=== PATIENT | male | born 1970 | race Caucasian/White ===

== ENCOUNTER → 2023-04-22 | Outpatient (CLI) | payer SELFPAY ==
--- NOTE | 2023-04-22 15:46 | CT_ITS ---
STUDY: CT MAXILLOFACIAL SINUSES REASON FOR EXAM: Male, 52 years old. SINUSITIS RADIATION DOSAGE (If Supplied By Facility): CTDIvol = ( 33.06 ) mGy, DLP = ( 895.83 ) mGycm TECHNIQUE: The patient was scanned in a multi detector CT scanner. High resolution axial imaging was performed without the administration of intravenous contrast material. Sagittal and coronal images were reconstructed. Individualized dose optimization techniques were used for this CT. COMPARISON: None. FINDINGS: FRONTAL SINUSES: Diffuse opacification of the frontal sinuses bilaterally. ETHMOIDAL SINUSES: Severe diffuse opacification of the right ethmoid air cells and left anterior ethmoid air cells with thickening of the ethmoid air cells septae. Mild mucosal thickening of left mid and posterior ethmoid air cells. MAXILLARY SINUSES: Severe diffuse opacification of the maxillary sinuses bilaterally.. SPHENOIDAL SINUSES: Severe opacification right sphenoid sinus and normal aeration on the left. There is occlusion of the bilateral maxillary infundibuli with normal uncinate processes, ethmoid bullae, and hiatus semilunaris. Large bilateral middle turbinates. Large bilateral inferior turbinates. Mild deviation nasal septum towards the right.. There is severe narrowing of the nasal cavity bilaterally more severe on the right. Incidental finding of changes consistent with chronic left mastoiditis.. The visualized bilateral orbital contents are normal. CT/Sinus/Facial Bone IMPRESSION: Severe diffuse pansinusitis with other findings consistent with sinonasal polyposis syndrome.. Clinical correlation recommended Electronically Signed: Tyrel Parmar MD at 22:51 EDT ,
== END | disposition home or self-care (01) ==
PROVIDERS: PCP Family Medicine; Referring Provider Otolaryngology Otolaryngology/Facial Plastic Surgery; Visit Provider Otolaryngology Otolaryngology/Facial Plastic Surgery
DX: J32.9 Chronic sinusitis, unspecified (principal)
CPT/HCPCS: 70486

== ENCOUNTER 2023-08-15 05:42 | Day surgery (SDC) | payer SELFPAY ==
[2023-08-15] VITALS (17 sets, daily range): BP systolic 127–169; BP diastolic 89–120; PULSE 78–102; RESP 16–18; TEMP 36.1–36.7; O2SAT 92–97; BMI 40.2
--- NOTE | 2023-08-15 06:15 | EKG12_ITS ---
Test Reason : PRE-OP Blood Pressure : / mmHG Vent. Rate : 093 BPM Atrial Rate : 093 BPM P-R Int : 140 ms QRS Dur : 084 ms QT Int : 350 ms P-R-T Axes : 006 041 008 degrees QTc Int : 435 ms Normal sinus rhythm Normal ECG No previous ECGs available Confirmed by THAIS HODGE, CORINNE ([id number]), field map editor JANNA CROWLEY ([id number]) on 08/31/2023 12:59:54 PM Referred By: Matt Burnette Confirmed By:CORINNE PLASCENCIA MD
[2023-08-15] MEDS: Oxymetazoline 0.05% 1 SPRAY SPRAY.BTL 3 SPRAY NASAL (06:17)
[2023-08-15] MEDS: Lactated Ringers 1,000 ML 15 ML IV (06:17)
[2023-08-15 06:28] LABS: Hematocrit 47.9 % (40-54); Hemoglobin 15.4 g/dL (13.0-16.5); Mean Corp Hgb Conc 32.2 g/dL (32-36); Mean Corpuscular Hgb 30.4 pg (27.0-32.0); Mean Corpuscular Volume 94.7 fL (80-94); Mean Platelet Vol. 10.5 fl (6.2-12.0); Platelet Count 269 K/mm3 (150-450); RBC Distribution Width CV 12.7 % (11.6-14.6); RBC Distribution Width SD 43.7 fl (35.1-43.9); Red Blood Count 5.06 M/mm3 (4.6-6.2); White Blood Count 8.2 K/mm3 (4.4-11.0)
[2023-08-15 06:43] LABS: Anion Gap 7 (5-15); BUN 21 mg/dL (7-18); BUN/Creat Ratio 24.4 RATIO (10-20); Calcium,Total 8.5 mg/dL (8.5-10.1); Chloride 108 mmol/L (98-107); Creatinine, Serum 0.86 mg/dL (0.70-1.30); EST Glomerular Filtration Rate 98 mL/min (>60); Est Glom Filt Rate - Afr Amer 119 mL/min (>60); Glucose 126 mg/dL (74-106); Potassium 4.4 mmol/L (3.5-5.1); Sodium Level 138 mmol/L (136-145)
--- NOTE | 2023-08-15 07:30 | ETH_PTH ---
PATIENT: ZULY VELEZ LOC: [facility] [place] U#:[id number] AGE/SX: 52/M ROOM: RE08/15/[address]: Dr. Matt Burnette MD : 1970 BED: DIS: 08/15/2023 SPEC #: [id number] RECD: 08/15/23 10:12 STATUS: MARIA LUZ WILMA #: [id number] STEPHAN: 08/15/23 07:[address]: Matt Burnette DEPT: SURGICAL PATHOLOGY RECD BY: Johana Powell ENTERED: 08/15/23 11:07 SP TYPE: ETH TISS OTHR DR: Dr. Maximilian Elizondo MD Tissues: Ethmoid sinus, NOS Procedures: Surgery Specimen Level IV HEADER OPERATION: Functional endoscopic sinus surgery PRE-OP DIAGNOSIS: Nasal polyps, nasal congestion, chronic TISSUE SUBMITTED: A. Right naso sinus contents, B. Left naso sinus contents MICROSCOPIC DIAGNOSIS A. Right naso sinus contents: Fragments of respiratory mucosa with acute and chronic inflammation and squamous metaplasia. See comment. B. Left naso sinus contents: Fragments of respiratory mucosa with chronic inflammation. SJ: 08/16/2023 COMMENT A. Many of the fragments have polypoid appearance, may represent fragments of polyp. MICROSCOPIC DESCRIPTION Slides are reviewed. GROSS DESCRIPTION A. Received is one container labeled with the patient name and designated right naso sinus contents. The specimen consists of multiple irregular fragments of hemorrhagic mucoid tissue that in aggregate measure 5 x 3 x 06 cm. A piece of santiago soft tissue is also noted measuring 2 x 1 x 0.5 cm. This piece is bisected. Special Education Teacher tissue is submitted in two cassettes, cassette 2 contains the santiago soft tissue, entirely submitted. B. Received is one container labeled with the patient name and designated left naso sinus contents. The specimen consists of multiple irregular fragments of hemorrhagic mucoid tissue that in aggregate measure 5 x 5 x 2 cm. Special Education Teacher tissue is submitted in two cassettes. / BLAS:dimitri 08/15/23 TC: 3 [facility]: [id number] x2
--- NOTE | 2023-08-15 07:34 | PCM.DC.SUM ---
Providers Primary Care Physician: Dr. Maximilian Elizondo MD Reason For Visit: 08/15/23 11:00 Functional Endoscopoic Sinus Surger Medications at Discharge Home Medications NK 08/15/23 Weight / BMI Weight Weight: 120 kg Body Mass Index (BMI) 40.2 ABG / Lab / Microbiology Data 08/15/23 06:15 08/15/23 06:15 Laboratory: Laboratory Results - last 24 hr 08/15/23 06:15: WBC 8.2, RBC 5.06, Hgb 15.4, Hct 47.9, MCV 94.7 H, MCH 30.4, MCHC 32.2, RDW Std Deviation 43.7, RDW Coeff of Kerry 12.7, Plt Count 269, MPV 10.5, Sodium 138, Potassium 4.4, Chloride 108 H, Carbon Dioxide 23.0, Anion Gap 7, BUN 21 H, Creatinine 0.86, Estim Creat Clear Calc 95.00, Est GFR (MDRD) Af Amer 119, Est GFR (MDRD) Non-Af 98, BUN/Creatinine Ratio 24.4 H, Glucose 126 H, Calcium 8.5 D/C Instructions Discharge Diet: No restrictions Additional Activity Instructions: NO NOSE BLOWING Additional Dressing/Incision Instructions: IRRIGATE WITH SALINE 4X/DAY. START 08/16/23 Please Follow Up With: Matt Burnette MD When: next week Meaningful Use Info Meaningful Use Diagnoses (Choose all that apply): None applicable Discharge Plan Admission Attending Provider: Matt Burntete Primary Care Provider: Maximilian Elizondo Discharge Orders/Prescriptions Prescriptions: No Action NK Referrals / Follow Up: Maximilian Elizondo MD [Primary Care Provider] -
[2023-08-15] MEDS: Oxymetazoline 0.05% 1 SPRAY SPRAY.BTL 15 SPRAY (07:55)
[2023-08-15] MEDS: Lidocaine 1% /Epi 1:100 (50ml) 50 ML VIAL (07:55)
--- NOTE | 2023-08-15 08:59 | PCM.OPRPT ---
Report of Operation Date of Procedure: 08/15/23 Pre-Operative Diagnosis: chronic sinusitis with polyposis Post-Operative Diagnosis: same Surgery/Procedure Performed:: Bilateral total ethmoidectomy Left sphenoidotomy bilateral maxillary antrostomy with tissue removal use of navigation Surgeon: Matt Burnette Type of Anesthesia: General Anesthesiologist: Ciro Loza Estimated Blood Loss (mL): 50 cc Description of Procedure: The patient was taken to the operating room on 08/15/2023. The patient was placed in the supine position on the operating table. The patient was given sufficient general endotracheal anesthesia. The head of bed was elevated 30 degrees. The navigation system was placed and verified per protocol and found to be accurate. 0 and 30 degrees rigid nasal endoscopes were used throughout the entire case. The middle turbinate uncinate process and polyps were injected with 1% lidocaine with epinephrine bilaterally. The right middle turbinate was medialized with a [place] elevator. Polyp was removed from the nasal cavity and middle meatus using a sinus shaver. A ball-tipped sinus seeker was placed into the patient's maxillary sinus. The antrostomy was created with a backbiter. The uncinate process was taken down using a microdebrider. Tissue was removed from the maxillary sinus using a microdebrider with a 30 degree rigid nasal endoscope for visualization. Next, the ethmoid bulla was opened with a small curette. Anterior and posterior ethmoidectomy were then carried out using curette, sinus shaver and 45 degree Blakesley Gold forceps. Ethmoid cells were verified for relation to the skull base and orbit prior to being entered with the navigation system. The front face of the sphenoid was opened with a suction. Joshua-Cut forceps were then used to widen the opening. I then placed Afrin pledgets into the sinonasal cavity. Next attention was turned to the left side. A large polyp was removed from the nasal cavity and middle meatus using a sinus shaver. The uncinate process was taken down using a sinus shaver. In doing so, the maxillary antrostomy was created with a microdebrider. Tissue was removed from the maxillary sinus using a microdebrider with a 30 degree rigid nasal endoscope for visualization. The ethmoid bulla was opened with a small curette. Anterior posterior ethmoidectomy were then carried out using a sinus shaver curette and Blakesley Gold forceps. Ethmoid cells were verified for relation to the skull base and orbit prior to being entered with the navigation system. There was a polyp occluding the natural sphenoid ostia. This was removed with a sinus shaver. The sphenoid was then opened on the left side using a sinus shaver and confirmed with navigation. Hemostasis was then achieved using Afrin pledgets. The pledgets were then removed bilaterally and Giovanni powder was applied bilaterally for absolute hemostasis. The procedure was then terminated. The patient was then awoken and brought to the recovery room in stable condition. blood loss approximately 50 cc, replacement none. Sponge, needle, instrument count were correct at the end of the procedure.
[2023-08-15] MEDS: Metoprolol Tartrate 5 MG/5 ML Vial 10 MG IV (09:52)
== END 2023-08-15 11:46 | disposition home or self-care (01) ==
LOC: SDC 05:48 → AC 05:53
PROVIDERS: PCP Family Medicine; Referring Provider Otolaryngology; Visit Provider Otolaryngology
PROC: (CPT 31255; principal; 2023-08-15 07:00)
DX: J33.0 Polyp of nasal cavity (principal); J32.9 Chronic sinusitis, unspecified; R09.81 Nasal congestion
CPT/HCPCS: 31255; 31267; 80048; 85027; 88305; 93005; J7120; J2405

== ENCOUNTER 2025-02-06 10:23 | Day surgery (SDC) | payer SELFPAY ==
--- NOTE | 2025-02-04 13:06 | PAT.ANE_ITS ---
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 When Was Last Pacemaker Check QUESTION #4 FULL TEXT: You/Your Family Experience fever (hyperthermia) with Anesthesia Last Oral Intake Last Oral intake: Last Oral Intake NPO since Meds taken in AM with sips of water? Meds patient instructed to take am of surgery PONV PONV - gasoline catalyst operator: PONV - gasoline catalyst operator Female No 02/01/25 15:17 HX of Motion Sickness No 02/01/25 15:17 HX of N/V After Surgery No 02/01/25 15:17 Non-Smoker Yes 02/01/25 15:17 Duration of Surgery greater No 02/01/25 15:17 than 60 minutes Number of Risk Factors 1 02/01/25 15:17 PONV Score Low Risk 02/01/25 15:17 Height & Weight Height & Weight: Anesthesia: Height & Weight Height 5 ft 8 in 08/15/23 06:14 Respiratory Assessment Respiratory Assessment - gasoline catalyst operator: Respiratory Tract Infection Hx - gasoline catalyst operator Hx Respiratory Tract Infection No 02/01/25 15:17 STOP Sleep Apnea STOP Sleep Apnea - gasoline catalyst operator: STOP Sleep Apnea - gasoline catalyst operator Hx Hypertension Yes: CONTROLLED WITH MED 02/01/25 15:17 Hx Sleep Apnea No 02/01/25 15:17 CPAP BIPAP Do you snore loudly (louder No 02/01/25 15:17 than talking or can be heard Do you often feel tired/ No 02/01/25 15:17 fatigued/ sleepy during daytime? Has anyone observed you stop No 02/01/25 15:17 breathing during sleep? STOP Results Negative 02/01/25 15:17 QUESTION #5 FULL TEXT : Do you snore loudly (louder than talking or can be heard through closed doors)? 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 Specify any problems Hx of Preganancy in last 3 N/A 02/01/25 15:17 Months Nurse Filling Out Transfusion NBUCHER 02/01/25 15:17 & Questions: Date: 02/01/25 02/01/25 15:17 Time: 15:18 02/01/25 15:17 Patient unable to answer at this time (ie. confused, unrespo /Reproduction History /Reproductive History - gasoline catalyst operator: /Reproductive Hx- gasoline catalyst operator Hx Now No 02/01/25 15:17 Gestational Age (in weeks): EDC: Hx Hx Para Hx Section SAB No 02/01/25 15:17 [facility] Medical History (Updated 02/01/25 @ 15:24 by Darleen Mercado) Wears glasses History of edema History of echocardiogram Hypertension Difficulty swallowing Gastric reflux Non-smoker Chronic cough Home Medications ?Medication ?Instructions ?Recorded ?Last Taken ?Type lisinopril 10 mg tablet 10 mg PO DAILY 02/01/25 Unkn own History Allergy/AdvReac Type Severity Reaction Status Date / Time No Known Allergies Allergy Verified 02/01/25 15:16 Surgical History (Updated 02/01/25 @ 15:24 by Darleen Mercado) History of nasal surgery History of colonoscopy History of ankle surgery (~1991) Social History Smoking Status: Never smoker Audit: Pertinent Findings Pertinent Findings EKG Perinent findings: 08/15/2023. Normal sinus rhythm 93 bpm. Recommendation Anesthesia Recommendation Anesthesia recommendation: OPTIMIZED for anesthesia
[2025-02-06] VITALS (8 sets, daily range): BP systolic 119–143; BP diastolic 81–111; PULSE 93–105; RESP 18; TEMP 36.3–37.6; O2SAT 92–98; BMI 39.0
--- NOTE | 2025-02-06 10:36 | PRE.ANES_ITS ---
ASA Classification* ASA Classification ASA Classification: 2 Assessment & Plan Anesthesia* Anesthesia Assessment Anesthesia Assessment: Discussed sedation and/or anesthesia options, risks, benefits, and alternatives with patient/parents/legal guardian/POA. Questions invited. The patient/parents/legal guardian/POA seems to understand and agrees to proceed with anesthesia plan. Reviewed the physical assessment, medical history, allergy history and patient home medications list prior to surgery/procedure/anesthetic and documented any changes. Performed airway and anesthesia risk assessments. Anesthesia Type Anesthesia Type: General Anesthesia Focused Assessment* Airway Assessment Mouth opens: >3 cm Mallampati Score: II Focused Labs Anesthesia Preop lab: CBC WBC 8.2 K/mm3 (4.4-11.0) 08/15/23 06:15 08/15/23 RBC 5.06 M/mm3 (4.6-6.2) 08/15/23 06:15 08/15/23 Hgb 15.4 g/dL (13.0-16.5) 08/15/23 06:15 08/15/23 Hct 47.9 % (40-54) 08/15/23 06:15 08/15/23 Plt Count 269 K/mm3 (150-450) 08/15/23 06:15 08/15/23 CHEMISTRY Potassium 4.4 mmol/L (3.5-5.1) 08/15/23 06:15 08/15/23 Sodium 138 mmol/L (136-145) 08/15/23 06:15 08/15/23 BUN 21 mg/dL (7-18) H 08/15/23 06:15 08/15/23 Creatinine 0.86 mg/dL (0.70-1.30) 08/15/23 06:15 08/15/23 Glucose 126 mg/dL (74-106) H 08/15/23 06:15 08/15/23 COAG Pre-Assessment Diagnosis/Proposed Procedure Planned Operative Procedure(s): Circumcision Anesthesia History Anesthesia History - patient access coordinator: Anesthesia History - patient access coordinator Hx Hospitalization No 02/01/25 15:17 Any Problems With Anesthesia No 02/01/25 15:17 Cholinesterase deficiency No 02/01/25 15:17 You/Your Family Experience No 02/01/25 15:17 fever (hyperthermia) with Relationship Recent Exposure to Contagious No 08/15/23 06:14 Disease Does patient have nerve No 02/01/25 15:17 stimulator Patient instructed to have device shut off --Does patient have Pacemaker or ICD? When Was Last Pacemaker Check QUESTION #4 FULL TEXT: You/Your Family Experience fever (hyperthermia) with Anesthesia Last Oral Intake Last Oral intake: Last Oral Intake NPO since Meds taken in AM with sips of water? Meds patient instructed to take am of surgery PONV PONV - patient access coordinator: PONV - patient access coordinator Female No 02/01/25 15:17 HX of Motion Sickness No 02/01/25 15:17 HX of N/V After Surgery No 02/01/25 15:17 Non-Smoker Yes 02/01/25 15:17 Duration of Surgery greater No 02/01/25 15:17 than 60 minutes Number of Risk Factors 1 02/01/25 15:17 PONV Score Low Risk 02/01/25 15:17 Height & Weight Height & Weight: Anesthesia: Height & Weight Height 5 ft 8 in 02/05/25 08:07 Weight: 121.563 kg 02/05/25 08:07 Respiratory Assessment Respiratory Assessment - patient access coordinator: Respiratory Tract Infection Hx - patient access coordinator Hx Respiratory Tract Infection No 02/01/25 15:17 STOP Sleep Apnea STOP Sleep Apnea - patient access coordinator: STOP Sleep Apnea - patient access coordinator Hx Hypertension Yes: CONTROLLED WITH MED 02/01/25 15:17 Hx Sleep Apnea No 02/01/25 15:17 CPAP BIPAP Do you snore loudly (louder No 02/01/25 15:17 than talking or can be heard Do you often feel tired/ No 02/01/25 15:17 fatigued/ sleepy during daytime? Has anyone observed you stop No 02/01/25 15:17 breathing during sleep? STOP Results Negative 02/01/25 15:17 QUESTION #5 FULL TEXT : Do you snore loudly (louder than talking or can be heard through closed doors)? 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 Specify any problems Hx of Preganancy in last 3 N/A 02/01/25 15:17 Months Nurse Filling Out Transfusion NBUCHER 02/01/25 15:17 & Questions: Date: 02/01/25 02/01/25 15:17 Time: 15:18 02/01/25 15:17 Patient unable to answer at this time (ie. confused, unrespo /Reproduction History /Reproductive History - patient access coordinator: /Reproductive Hx- patient access coordinator Hx Now No 02/01/25 15:17 Gestational Age (in weeks): EDC: Hx Hx Para Hx Section SAB No 02/01/25 15:17 PFSH Medical History Wears glasses History of edema History of echocardiogram Hypertension Difficulty swallowing Gastric reflux Non-smoker Chronic cough Home Medications ?Medication ?Instructions ?Recorded ?Last Taken ?Type lisinopril 10 mg tablet 10 mg PO DAILY 02/01/25 Unkn own History Allergy/AdvReac Type Severity Reaction Status Date / Time No Known Allergies Allergy Verified 02/01/25 15:16 Surgical History History of nasal surgery History of colonoscopy History of ankle surgery (~1991) Social History Smoking Status: Never smoker Review of Systems (Anesthesia) ROS Narrative System reviewed and no additional complaints, except as documented.
[2025-02-06] MEDS: Lactated Ringers 1,000 ML 15 ML IV (11:03)
--- NOTE | 2025-02-06 12:11 | HP.PCM_ITS ---
HPI - General General Date of Service: 02/06/25 Chief Complaint: Phimosis HPI Narrative ZULY VELEZ, is a 54 M who presents for a circumcision [facility] Medical History Wears glasses History of edema History of echocardiogram Hypertension Difficulty swallowing Gastric reflux Non-smoker Chronic cough Home Medications ?Medication ?Instructions ?Recorded ?Last Taken ?Type lisinopril 10 mg tablet 10 mg PO DAILY 02/01/25 Unkn own History Allergy/AdvReac Type Severity Reaction Status Date / Time No Known Allergies Allergy Verified 02/06/25 10:55 Surgical History History of nasal surgery History of colonoscopy History of ankle surgery (~1991) Social History Smoking Status: Never smoker Vital Signs Vital Signs Vital Signs: 02/06/25 10:58 02/06/25 10:58 Temperature 97.5 F L Temperature Source Temporal Pulse Rate 105 H Respiratory Rate 18 Respiratory Pattern Normal Blood Pressure 143/111 H Blood Pressure Mean 121 Blood Pressure Source Monitor Blood Pressure Position Semi-Fowlers Blood Pressure Location Left Arm Pulse Ox 96 Oxygen Delivery Method Room Air Weight Weight: 116.6 kg Body Mass Index (BMI) 39.0
--- NOTE | 2025-02-06 12:12 | DCINST_ITS ---
Discharge Instructions Diet Discharge Diet: No restrictions DC O2, CPAP, BIPAP needs Home O2 Discharge instructions: No Dressing / Incision Discharge Activity: Return to Normal Activity and May Not Drive (while taking narcotic pain medications.) Dressing / Incision Call your doctor if you observe: Fever of 101 or Higher Follow Up Care Please Follow Up With: Romeo King MD When: Call [phone] for an appointment Test Results: Test results from this visit will be discussed in further detail at your follow- up appointment, if applicable. Discharge Plan Admission Primary Reason for Your Visit: circumcision Attending Provider: Romeo King Primary Care Provider: Maximilian Elizondo Instructions Print Language: Hungarian Discharge Orders/Prescriptions Prescriptions: No Action lisinopril 10 mg tablet 10 mg PO DAILY Referrals / Follow Up: Romeo King MD [Med Staff - Active Staff] - Maximilian Elizondo MD [Primary Care Provider] - Disposition Disposition (needs filled in before D/C Order can be placed): Home, Self Care
[2025-02-06] MEDS: Cefazolin 3 GM in 0.9% Normal Saline (100mL Bag) 100 ML IV (12:16)
--- NOTE | 2025-02-06 12:25 | FOR_PTH ---
PATIENT: ZULY VELEZ [place] [facility] [place][id number] AGE/SX: 54/M ROOM: RE02/06/[address]: Dr. Romeo King MD : 1970 BED: DIS: 02/06/2025 SPEC #: [id number] RECD: 02/06/25 13:31 STATUS: MARIA LUZ WILMA #: [id number] STEPHAN: 02/06/25 12:[address]: Romeo King DEPT: SURGICAL PATHOLOGY RECD BY: Talon Acosta ENTERED: 02/06/25 14:42 SP TYPE: FORESKIN OTHR DR: Dr. Maximilian Elizondo MD Tissues: A - Skin of foreskin, NOS Procedures: Surgery Specimen Level III HEADER OPERATION: Circumcision PRE-OP DIAGNOSIS: Stenosis TISSUE SUBMITTED: A- Foreskin MICROSCOPIC DIAGNOSIS A. Foreskin, circumcision: * Benign hyperkeratotic squamous epithelium with mild superficial chronic inflammation MICROSCOPIC DESCRIPTION Slides are reviewed. GROSS DESCRIPTION A. Received in formalin in a container labeled with the patient's name, date of , and foreskin is an unoriented and irregular portion of rubbery skin measuring 6.6 x 3.3 x 0.5 cm. The epidermis is santiago-pink and wrinkled with a white-pink, roughened, and somewhat thickened area measuring 5.3 x 1.4 cm, abutting the periphery. The deep margin is inked green, and sectioning reveals santiago-pink, rubbery surfaces with white-pink skin. Magnetic Tape Winder sections submitted in A1. [facility] 02-06-2025 CPT:73872
[2025-02-06] MEDS: Bupivacaine Mpf 0.5% 30 ML VIAL (12:31)
--- NOTE | 2025-02-06 12:48 | OP.PCM_ITS ---
Operative Report (Standard) Operative Information Date of Procedure: 02/06/25 Pre-Operative Diagnosis: Phimosis Post-Operative Diagnosis: The same Surgery/Procedure Performed: Circumcision ophthalmic medical technologist: No Type of Anesthesia: General RN Documented Start/Stop Times: Operation Date: 02/06/25 12:25 Case Time Into Pre-Op 02/06/25 10:49 Procedure Start Time: 12:29 Procedure Stop Time: 12:49 Select all DRAINS/GRAFTS/IMPLANTS that apply: None Estimated Blood Loss: Minimal Specimen collected: Yes Description of specimen(s) removed: Foreskin Description of surgery: Patient presented to the preoperative area and we plan to proceed with a circumcision. We discussed how the procedure is done and we discussed the risks of the procedure including the risk of scar tissue formation, poor healing, bleeding, infection, urethral meatal stenosis, chronic balanitis and swelling, and poor cosmetic outcome. No guarantees were given to the patient as to the results of the procedure we discussed was involved with the procedure and how it would be done. He was given instructions on postoperative care. After full discussion with the patient all his questions were addressed organ to proceed with a circumcision. Patient was taken back to the operating room, a time out procedure was performed and he was transferred to the table. He then underwent general anesthesia by the anesthesia team. The penis and testicles were shaved prepped and draped in usual sterile fashion. I first inspected the penis and marked out my incision site circumferentially below the foreskin on the penile shaft making sure that there was plenty of skin for the reconstruction. I then bivalved the foreskin open and then incised the foreskin below the dubois of the glans penis circumferentially. I then used electrocautery to dissect the foreskin off the penis. After obtaining perfect hemostasis I then performed the circumcision by reanastomosing the shaft skin to the subcoronal skin below the glans penis all the way around the penis. This was used using chromic stitches interrupted all the way around and in a few places some running stitches to bridge the gaps. Once the circumcision was completed then fluffs and dressings were placed on the penis. The patient anesthetic was reversed and he was taken back to the PACU in stable condition. Surgical Findings: Foreskin removed Complications Complications: No Admit VTE Documentation VTE Present on Admission: No VTE Mechan Device Prophylaxis: SCD's VTE Pharm Prophylaxis ordered?: No
--- NOTE | 2025-02-06 14:07 | PCM.POST.ANE ---
Anesthesia: Postop Eval I Current Vital Signs Temperature: 99.6 F Pulse Rate: 96 Blood Pressure: 133/98 Respiratory Rate: 18 Pulse Ox: 96 Assessment Airway patent: Yes Spontaneous unlabored respirations: Yes Mental status: Awake nausea: No Vomiting: No Anesthesia Complication: No Fluid Hydration Crystalloid volume administer (ml): 200 Total IV fluid infused: 200 Progress Note Anesthesia document: Postop Eval 1 completed: Yes
--- NOTE | 2025-02-06 14:11 | PCM.POSTANE2 ---
Anesthesia Postop Eval I Sum Postop Eval Completion status Anesthesia document: Postop Eval 1 completed: Yes Anesthesia Postop Eval I Summary Anesthesia Postop Eval I Summary: Anesthesia Postop Eval I: Assessment Summary Airway patent Yes 02/06/25 14:08 Spontaneous unlabored Yes 02/06/25 14:08 respirations Mental status Awake 02/06/25 14:08 nausea No 02/06/25 14:08 Vomiting No 02/06/25 14:08 Anesthesia Postop Eval I: Fluid Summary Crystalloid volume administer 200 02/06/25 14:08 (ml) Colloids volume administered ( ml) Blood Product volume administered (ml) Total IV fluid infused 200 02/06/25 14:08 Anesthesia Postop Eval I: Summary Notes Anesthesia Complication No 02/06/25 14:08 Anesthesia Complication Comment: Post-operative progress note Anesthesia: Postop Eval II Evaluation Mental status: Awake Pain Level: 0 nausea: No Vomiting: No
== END 2025-02-06 13:52 | disposition home or self-care (01) ==
LOC: SDC 10:28 → AC 10:31
PROVIDERS: PCP Family Medicine; Referring Provider Urology; Visit Provider Urology
PROC: (CPT 54161; principal; 2025-02-06 12:15)
DX: N47.1 Phimosis (principal); I10 Essential (primary) hypertension; Z79.899 Other long term (current) drug therapy
CPT/HCPCS: 54161; 00920; 88304; J2405